=== PATIENT | male | born 1995 | race Caucasian/White ===

== ENCOUNTER 2017-09-14 23:45 | Emergency (ER) | payer SELFPAY ==
[~2017-09-14] VITALS: Ht 180.3 cm; Wt 109.9 kg
[2017-09-14 23:53] VITALS: TEMP 37.2; Ht 180.3 cm; Wt 109.9 kg
[2017-09-15 00:33] LABS: BASO % 0.4 %; BASO ABS # 0.03 K/uL (0-0.2); EOS % 1.6 %; EOS ABS # 0.13 K/uL (0-0.5); HEMATOCRIT 46.9 % (42-52); HEMOGLOBIN 16.8 g/dL (14.0-18.0); IG# 0.05 K/uL (0.00-0.02); LYMPH % 24.5 %; LYMPH ABS # 2.03 K/uL (1.2-3.4); MEAN CORPUSCULAR HGB CONC 35.8 g/dl (32-36); MEAN PLATELET VOLUME 9.8 fL (7.4-10.4); MONO % 6.3 %; MONO ABS # 0.52 K/uL (0.11-0.59); NEUT % 66.6 %; NEUT ABS # 5.53 K/uL (1.4-6.5); PLATELET COUNT 260 K/uL (130-400); RED CELL DISTRIBUTION WIDTH CV 13.2 % (11.5-14.5); RED CELL DISTRIBUTION WIDTH SD 38.9 fL (36.4-46.3); WHITE BLOOD COUNT 8.29 K/uL (4.8-10.8)
[2017-09-15 00:45] VITALS: O2SAT 98
[2017-09-15 00:55] LABS: ALBUMIN 4.5 gm/dl (3.4-5.0); CALCIUM 8.8 mg/dl (8.5-10.1); CREATININE 1.26 mg/dl (0.60-1.40); POTASSIUM 3.6 mmol/L (3.5-5.1)
[2017-09-15 01:10] LABS: TOTAL PROTEIN 8.7 gm/dl (6.4-8.2)
[2017-09-15 02:30] VITALS: BP 166/80; PULSE 91; O2SAT 96
--- NOTE | 2017-09-15 07:59 | DIAGNOSTIC IMAGING REPORT ---
CHEST 2 VIEWS ROUTINE CLINICAL HISTORY: Hypertension COMPARISON STUDY: No previous studies for comparison. FINDINGS: The cardiac and mediastinal contours are normal. There is no evidence of focal pulmonary consolidation. There is no evidence of failure. No pleural effusions are visualized.[ IMPRESSION: No active disease in the chest. Electronically signed by: Kareem Tyson M.D. 09/15/2017 7:57 AM Dictated Date/Time: 09/15/2017 7:57 AM
--- NOTE | 2017-09-16 01:01 | EMERGENCY ROOM VISIT NOTE ---
History First contact with patient: 23:58 Chief Complaint: HYPERTENSION Stated Complaint: HBP History of Present Illness The patient is a 21 year old male who presents to the Emergency Room with complaints of elevated blood pressure for the past several months. The patient has a long-standing history of hypertension, that he states was diagnosed 5 years ago when he was 16. The patient was previously on an unknown antihypertensive medication, however his primary care physician retired, and the patient has not reestablished elsewhere. The patient does not have insurance, and is unsure if he is eligible for any services. He is currently staying with his girlfriend locally, and states that he started having some numbness into his hands which caused him some concern. He does not have injury or trauma. No head, neck, chest, or back pain is reported. No shortness of breath or fever. The patient considers himself otherwise healthy. He is not in any pain. Review of Systems More than 10 systems were reviewed and otherwise negative with the exception of history of present illness. Past Medical/Surgical History History of hypertension Family History No pertinent family history Social History Smoking Status: Never Smoker Marital Status: in relationship Current/Historical Medications No Active Prescriptions or Reported Meds Physical Exam Vital Signs Date Time Temp Pulse Resp B/P (MAP) Pulse Ox O2 Delivery O2 Flow Rate FiO2 09/15/17 02:30 91 23 166/80 96 Room Air 09/15/17 02:00 91 19 149/83 96 Room Air 09/15/17 01:30 95 25 151/97 95 Room Air 09/15/17 01:08 96 16 165/94 95 Room Air 09/15/17 00:45 98 Room Air 09/15/17 00:35 106 09/14/17 23:53 37.2 122 18 175/122 97 Room Air Physical Exam VITALS: Vitals are noted on the nurse's note and reviewed by myself. Vital signs with noted hypertension GENERAL: Well-developed, well-nourished, white male, who is in no acute distress and resting comfortably. Patient is cooperative with the examination. HEAD: Normocephalic atraumatic. NECK: Supple without nuchal rigidity. No lymphadenopathy. No thyromegaly. Cervical spine is nontender. HEART: Regular rate and rhythm without murmurs gallops or rubs. LUNGS: Clear to auscultation bilaterally without wheezes, rales or rhonchi. No retractions or accessory muscle use. ABDOMEN: Positive normal bowel sounds x 4. Soft, nontender, without masses or organomegaly. No guarding or rebound tenderness. MUSCULOSKELETAL: No muscle atrophy, erythema, or edema noted. Full range of motion in all extremities. No tenderness to palpation. NEURO: Patient was alert and oriented to person place and time. CN II through XII grossly intact. No focal neurological deficits. Medical Decision & Procedures ER Provider Diagnostic Interpretation: CHEST 2 VIEWS ROUTINE CLINICAL HISTORY: Hypertension COMPARISON STUDY: No previous studies for comparison. FINDINGS: The cardiac and mediastinal contours are normal. There is no evidence of focal pulmonary consolidation. There is no evidence of failure. No pleural effusions are visualized.[ IMPRESSION: No active disease in the chest. Laboratory Results 09/15/17 00:05 Red Blood Count 5.79, Mean Corpuscular Volume 81.0, Mean Corpuscular Hemoglobin 29.0, Mean Corpuscular Hemoglobin Concent 35.8, Mean Platelet Volume 9.8, Neutrophils (%) (Auto) 66.6, Lymphocytes (%) (Auto) 24.5, Monocytes (%) (Auto) 6.3, Eosinophils (%) (Auto) 1.6, Basophils (%) (Auto) 0.4, Neutrophils # (Auto) 5.53, Lymphocytes # (Auto) 2.03, Monocytes # (Auto) 0.52, Eosinophils # (Auto) 0.13, Basophils # (Auto) 0.03 09/15/17 00:05 Test 09/15/17 00:05 09/15/17 00:39 White Blood Count 8.29 K/uL (4.8-10.8) Red Blood Count 5.79 M/uL (4.7-6.1) Hemoglobin 16.8 g/dL (14.0-18.0) Hematocrit 46.9 % (42-52) Mean Corpuscular Volume 81.0 fL (80-100) Mean Corpuscular Hemoglobin 29.0 pg (25-34) Mean Corpuscular Hemoglobin Concent 35.8 g/dl (32-36) Platelet Count 260 K/uL (130-400) Mean Platelet Volume 9.8 fL (7.4-10.4) Neutrophils (%) (Auto) 66.6 % Lymphocytes (%) (Auto) 24.5 % Monocytes (%) (Auto) 6.3 % Eosinophils (%) (Auto) 1.6 % Basophils (%) (Auto) 0.4 % Neutrophils # (Auto) 5.53 K/uL (1.4-6.5) Lymphocytes # (Auto) 2.03 K/uL (1.2-3.4) Monocytes # (Auto) 0.52 K/uL (0.11-0.59) Eosinophils # (Auto) 0.13 K/uL (0-0.5) Basophils # (Auto) 0.03 K/uL (0-0.2) RDW Standard Deviation 38.9 fL (36.4-46.3) RDW Coefficient of Variation 13.2 % (11.5-14.5) Immature Granulocyte % (Auto) 0.6 % Immature Granulocyte # (Auto) 0.05 K/uL (0.00-0.02) Anion Gap 7.0 mmol/L (3-11) Est Creatinine Clear Calc Drug Dose 115.9 ml/min Estimated GFR () 93.2 Estimated GFR (Non- 80.4 BUN/Creatinine Ratio 10.3 (10-20) Calcium Level 8.8 mg/dl (8.5-10.1) Magnesium Level 2.1 mg/dl (1.8-2.4) Total Bilirubin 0.8 mg/dl (0.2-1) Aspartate Amino Transf (AST/SGOT) 30 U/L (15-37) Alanine Aminotransferase (ALT/SGPT) 78 U/L (12-78) Alkaline Phosphatase 96 U/L (45-117) Total Protein 8.7 gm/dl (6.4-8.2) Albumin 4.5 gm/dl (3.4-5.0) Globulin 4.2 gm/dl (2.5-4.0) Albumin/Globulin Ratio 1.1 (0.9-2) Thyroid Stimulating Hormone (TSH) 1.930 uIu/ml (0.300-4.500) Chemistry Specimen Hemolysis Lyme Disease IgG Antibody NEG (NEG) Lyme Disease IgM Antibody NEG (NEG) Bedside D-Dimer 389 ng/mlFEU (0-450) Bedside Troponin I < 0.030 ng/ml (0-0.045) ECG Per My Interpretation Change: Sinus tachycardia @105bpm Otherwise normal ECG No previous ECGs available ED Course Physical exam and history were performed. Nursing notes, EMR, and Medication List were personally reviewed. Patient appears to have a history of hypertension. He presents to the ER today for some vague numbness into his hands, for which she is concerned this may be related to his elevated blood pressure. Patient does have an elevated blood pressure on triage. EKG was performed and reviewed by myself as above. IV access was established and labs were obtained. Chest x-ray was performed. The patient's blood work is as above and was reviewed. He does not have a significantly elevated white blood cell count, gross anemia, bandemia, or significant electrolyte imbalance. Transaminases are nondiagnostic. Troponin is negative. D-dimer is negative. TSH is euthyroid state. Lyme disease screening is negative. Chest x-ray was reviewed by myself and radiology as showing no acute process. The patient remained in normal sinus rhythm on the monitor and storage bin tender. His blood pressure did improve without intervention. Overall the patient appears well for discharge home. I had a lengthy discussion with the patient regarding his workup and findings. I did engage case management to help the patient establish services locally. He needs to follow with a primary care physician who is willing to provide him antihypertensive medications. The patient is unsure of his previous medication , and thus I am unable to refill this on his behalf. If the patient is able to determine his prescription I would be willing to provide him a short prescription to assist until he can get in with his primary care physician. The patient was otherwise invited back to the ER with any new, worsening, or concerning symptoms. He voiced understanding and rated his discomfort as 0/10 at the time of departure. The chart was completed utilizing [employer] Voice Recognition Software. Grammatical errors, random word insertions, pronoun errors, and incomplete sentences are an occasional consequence of this system due to software limitations, ambient noise, and hardware issues. Any formal questions or concerns about the content, text, or information contained within the body of this dictation should be directly addressed to the provider for clarification. . Medical Decision Differential diagnosis includes, but is not limited to: Myocardial infarction, dysrhythmia, pericarditis, pneumothorax, aortic aneurysm/dissection, DVT/PE, anxiety, GERD, PUD, electrolyte imbalance, thyroid disorder, pneumonia, bronchitis, pancreatitis, and others Impression Primary Impression: Hypertension Departure Information Dispostion Home / Self-Care Condition GOOD Prescriptions No Active Prescriptions or Reported Meds Forms HOME CARE DOCUMENTATION FORM, IMPORTANT VISIT INFORMATION Patient Instructions My [facility] Additional Instructions You were seen and evaluated today on an emergency basis only. This is not a substitute for, or an effort to provide, complete comprehensive medical care. It is not possible to recognize and treat all injuries or illnesses in a single emergency department visit. For this reason it is recommended that you followup with a primary care physician for ongoing evaluation. Please use the resources provided by case management to help make the appointment. You are welcome to return to the emergency department anytime with new, worsening, or concerning symptoms.
== END 2017-09-15 02:40 | disposition home or self-care (01) ==
LOC: C.EDB 23:47
DX: I10 Essential (primary) hypertension (principal); R20.0 Anesthesia of skin